=== PATIENT | female | born 1955 | race Caucasian/White ===

== ENCOUNTER 2018-08-22 17:42 | Emergency (ER) | payer BC ==
[2018-08-22 19:05] VITALS: BP 133/51
--- NOTE | 2018-08-22 19:35 | ED ---
GI/ HPI - HPI Summary HPI Summary: had some low back pain which began two days ago and has persisted, pain lowgrade burning noted , without dysuria or frequency - History of Current Complaint Chief Complaint: UCGU Time Seen by Provider: 08/22/18 18:52 Stated Complaint: URINARY Hx Last Menstrual Period: 2003 Timing: Constant Severity: Moderate Current Severity: Moderate Pain Intensity: 6 Location of Pain: Flank Pain Characteristics: Dull, Pressure Pain Radiates to: Flank Associated Signs and Symptoms: Positive: Negative Aggravating Factor(s): Nothing Alleviating Factor(s): Nothing - Allergy/Home Medications Allergies/Adverse Reactions: Allergies Allergy/AdvReac Type Severity Reaction Status Date / Time amoxicillin [From Augmentin] AdvReac Intermediate Diarrhea Verified 08/22/18 19: 13 clavulanic acid AdvReac Intermediate Diarrhea Verified 08/22/18 19:13 [From Augmentin] nifedipine [From Procardia] AdvReac Intermediate leg Verified 08/22/18 19:13 swelling ibuprofen AdvReac Has hx of Verified 08/22/18 19:15 ulcers Home Medications: Home Medications Mirabegron (NF) [Myrbetriq (NF)] 25 mg PO DAILY 08/22/18 [History Confirmed 05/04] PMH/Surg Hx/FS Hx/Imm Hx Previously Healthy: No Endocrine/Hematology History: Reports: Hx Thyroid Disease - HYPOTHYROID Denies: Hx Diabetes Cardiovascular History: Reports: Hx Hypertension - CONTROL WITH MED GI History: Reports: Hx Gastroesophageal Reflux Disease - CONTROL WITH MEDS, Hx Irritable Bowel, Hx Ulcer - HX OF History: Reports: Hx Kidney Infection - FREQUENT, Other Problems/ Disorders - bladder neck stricture, recently dilated Sensory History: Reports: Hx Contacts or Glasses - CONTACTS, WILL WEAR GLASSES DAY OF SURGERY Denies: Hx Hearing Aid Opthamlomology History: Reports: Hx Contacts or Glasses - CONTACTS, WILL WEAR GLASSES DAY OF SURGERY Psychiatric History: Reports: Hx Anxiety, Hx Depression - CONTROL WITH MED - Surgical History Surgery Procedure, Year, and Place: GB REMOVED 10 YRS AGO; TUBAL LIGATION 29 YEARS AGO. DENIES ANY OTHER KNOWN CONDITIONS. Had Ureter streched R/T narrowing Hx Anesthesia Reactions: Yes - HARD TO WAKE UP Infectious Disease History: No Infectious Disease History: Denies: History Other Infectious Disease, Traveled Outside the [place] in Last 30 Days - Family History Known Family History: Negative: Cardiac Disease Family History: No FMHx blood clots - Social History Alcohol Use: Occasionally Substance Use Type: Reports: None Smoking Status (MU): Light Every Day Tobacco Smoker Type: Cigarettes Amount Used/How Often: 5 CIGARETTES PER DAY FOR 16 YEARS Length of Time of Smoking/Using Tobacco: 16 YEARS Have You Smoked in the Last Year: Yes Review of Systems All Other Systems Reviewed And Are Negative: Yes Physical Exam Triage Information Reviewed: Yes Vital Signs On Initial Exam: Initial Vitals Temp Pulse Resp BP Pulse Ox 36.9 C 84 16 133/51 98 08/22/18 18:58 08/22/18 18:58 08/22/18 18:58 08/22/18 18:58 08/22/18 18:58 Vital Signs Reviewed: Yes Appearance: Positive: Well-Appearing Skin: Positive: Warm Head/Face: Positive: Normal Head/Face Inspection Eyes: Positive: Normal ENT: Positive: Normal ENT inspection Respiratory/Lung Sounds: Positive: Clear to Auscultation Cardiovascular: Positive: Normal Abdomen Description: Positive: Nontender, CVA Tenderness (R), CVA Tenderness (L) Diagnostics - Vital Signs Vital Signs Temp Pulse Resp BP Pulse Ox 08/22/18 18:58 36.9 C 84 16 133/51 98 - Laboratory Lab Results: Lab Results 08/22/18 Range/Units 19:17 POC Urine Color Yellow POC Urine Clarity Clear POC Urine pH 6.0 (5-9) POC Ur Specif [place] 1.010 (1.010-1.030) POC Urine Protein Negative (Negative) POC Ur Glucose (UA) Negative (Negative) POC Urine Ketones Negative (Negative) POC Urine Blood Negative (Negative) POC Urine Nitrite Negative (Negative) POC Urine Bilirubin Negative (Negative) POC Urine Urobilinogen 0.2 (Negative) POC U Leukocyte Esteras 1+ A (Negative) Lab Statement: Any lab studies that have been ordered have been reviewed, and results considered in the medical decision making process. GIGU Course/Dx - Diagnoses Provider Diagnoses: UTI (urinary tract infection) - Additional Visit Information Is Visit Related: No Discharge - Sign-Out/Discharge Documenting (check all that apply): Patient Departure All imaging exams completed and their final reports reviewed: Yes - Discharge Plan Condition: Good Disposition: HOME Prescriptions: Ciprofloxacin TAB* [Cipro 500 MG TAB*] 500 mg PO BID #14 tab Patient Education Materials: Urinary Tract Infection in Women (DC) Referrals: Duran Whitley MD [Primary Care Provider] - - Billing Disposition and Condition Condition: GOOD Disposition: Home
== END 2018-08-22 19:46 | disposition home or self-care (01) ==
LOC: UCCORT 17:42
DX: N39.0 Urinary tract infection, site not specified (principal); Z88.0 Allergy status to penicillin; Z88.1 Allergy status to other antibiotic agents; Z88.8 Allergy status to other drugs, medicaments and biological substances; Z88.6 Allergy status to analgesic agent; F17.210 Nicotine dependence, cigarettes, uncomplicated
CPT/HCPCS: 81003; 87077; 87086; 87186; 99212; G0463